=== PATIENT | male | born 2000 ===

== ENCOUNTER 2022-12-26 19:53 | Emergency (ER) | payer MEDICAID, SELFPAY ==
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
[2022-12-26 19:57] VITALS: BP 122/65; PULSE 52; RESP 16; TEMP 36.7; O2SAT 98; BMI 27.0
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
[2022-12-26] MEDS: Acetaminophen 325 MG TABLET 975 MG PO (21:57)
[2022-12-26] MEDS: Cyclobenzaprine HCl 10 MG TABLET PO (21:57)
--- NOTE | 2022-12-26 23:14 | PC.NURSE ---
pt wounds cleansed with NS followed by bacitracin followed y nonstick, abd placed on flank, folllowed by kerlix and tape. thumb spica applied to left hand fx well tolerated by pt
== END 2022-12-26 23:15 | disposition home or self-care (01) ==
PROVIDERS: Emergency Provider Emergency Medicine; PCP Pediatrics
DX: S62.001A Unspecified fracture of navicular [scaphoid] bone of right wrist, initial encounter for closed fracture (principal); S60.511A Abrasion of right hand, initial encounter; R51.9 Headache, unspecified; M54.2 Cervicalgia; M25.562 Pain in left knee; M25.561 Pain in right knee; M25.532 Pain in left wrist; M25.531 Pain in right wrist; V19.9XXA Pedal cyclist (driver) (passenger) injured in unspecified traffic accident, initial encounter; Y93.9 Activity, unspecified; Y92.410 Unspecified street and highway as the place of occurrence of the external cause; Y99.9 Unspecified external cause status; Z79.899 Other long term (current) drug therapy
CPT/HCPCS: 70450; 72125; 73110; 73130; 73564; 99283

== ENCOUNTER 2023-01-04 09:57 | Outpatient (REF) | payer MEDICAID, SELFPAY ==
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
== END 2023-01-04 09:58 | disposition home or self-care (01) ==
LOC: HO.HOSX 09:57
PROVIDERS: PCP Pediatrics; Visit Provider Orthopaedic Surgery
DX: S62.021A Displaced fracture of middle third of navicular [scaphoid] bone of right wrist, initial encounter for closed fracture (principal)
CPT/HCPCS: 73110; 99202

== ENCOUNTER 2023-01-06 06:55 | Day surgery (SDC) | payer MEDICAID, SELFPAY ==
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
[2023-01-06] VITALS (8 sets, daily range): BP systolic 114–147; BP diastolic 70–84; PULSE 44–67; RESP 12–18; TEMP 36.1–36.4; O2SAT 96–100; BMI 28.1
--- NOTE | ~2023-01-06 | FL_ITS ---
EXAMINATION: XR FLUOROSCOPY WITH IMAGES CLINICAL INFORMATION: Right scaphoid fracture COMPARISON: None available. TECHNIQUE: Fluoroscopy Supervised By: Dr. Eben Valera. Fluoroscopy Time: 174.08 seconds Cumulative Dose: . 5.82 mGy. DAP: 0.3521 Gycm2. Images: 9 FINDINGS: There are 9 digital images revealing stabilization of mid scaphoid fracture with a solitary cancellous screw the fracture fragment is in alignment. No additional bony abnormality seen. FL/FL guidance in OR IMPRESSION: Interval stabilization of scaphoid fracture with a solitary cancellous screws. Fluoroscopy guidance was provided to referring physician.
[2023-01-06] MEDS: Lactated Ringers 1,000 ML 100 ML IVCONT (08:22)
--- NOTE | 2023-01-06 08:31 | P.CONAN_ITS ---
[facility] Active Problems Active Problems: All Active Problems (Updated 01/04/23 @ 10:38 by Anderson Boles) Closed comminuted fracture of waist of scaphoid of right wrist (Acute) Past Medical History Functional capacity: independent ambulation Social History Social History Patient Tobacco Use Status: Never used Tobacco Current occupational status: unemployed Current occupation: right hand Meds Allergies Allergy/AdvReac Type Severity Reaction Status Date / Time No Known Allergies Allergy Unverified 01/04/23 10:27 Active Medications: Current Medications Lactated Ringer's (Lr) 1,000 mls @ 100 mls/hr IVCONT .Q10H DANNY Last Admin: 01/06/23 08:22 Dose: 100 mls/hr Exam Exam Date and Time: January 06, 2023 0831 Height,Weight and Vital Signs: Height 5 ft 8 in Weight 83.915 kg Last Vital Signs Temp 96.9 F 01/06/23 08:13 Pulse 44 L 01/06/23 08:13 Resp 18 01/06/23 08:13 BP 123/70 01/06/23 08:13 Pulse Ox 99 01/06/23 08:13 O2 Del Method Room Air 01/06/23 08:13 Airway Mallampati Class: II TM Dist: >3cm Neck ROM: Full Heart: RRR Lungs: CTA Assessment and Plan Assessment Anesthesia Assessment: Anesthesia Plan Discussed, Smoking Cess. Discussed and Chart Reviewed Final Anesthetic Review ASA Class: II Final Preanesthetic Review: Meds/Allgs Chart Reviewed, Consent Obtained/Reviewed and Anes Risks/Benef Reviewed Patient Risk: Low Procedure Risk: Low Anesthetic Plan Anesthetic Plan: GA Disposition: Standard PACU
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
--- NOTE | 2023-01-06 11:30 | HO.ANESPROP2 ---
[facility] Active Problems Active Problems: All Active Problems (Updated 01/04/23 @ 10:38 by Anderson Boles) Closed comminuted fracture of waist of scaphoid of right wrist (Acute) asthma Past Medical History Functional capacity: independent ambulation Social History Social History Patient Tobacco Use Status: Never used Tobacco Use of substances other than those prescribed or required for medical reasons: Yes Substance Use Frequency: Daily Are you DNR?: No Advance Directives: No Advance Directives Information Provided: Yes Current occupational status: unemployed Current occupation: right hand Meds Allergies Allergy/AdvReac Type Severity Reaction Status Date / Time No Known Allergies Allergy Unverified 01/04/23 10:27 Active Medications: Current Medications Fentanyl (Fentanyl Citrate/Pf 100 Mcg/2 Ml Vial) 25 mcg IVPUSH Q5M PRN; Protocol PRN Reason: Pain, Moderate(Pain Scale 4-6) Lactated Ringer's (Lr) 1,000 mls @ 100 mls/hr IVCONT .Q10H DANNY Last Admin: 01/06/23 08:22 Dose: 100 mls/hr Ondansetron HCl (Ondansetron Hcl 4 Mg/2 Ml Vial) 4 mg IVPUSH ONCE PRN PRN Reason: Nausea and Vomiting Exam Exam Date and Time: January 06, 2023 1130 Height,Weight and Vital Signs: Height 5 ft 8 in Weight 83.915 kg Last Vital Signs Temp 96.9 F 01/06/23 08:13 Pulse 44 L 01/06/23 08:13 Resp 18 01/06/23 08:13 BP 123/70 01/06/23 08:13 Pulse Ox 99 01/06/23 08:13 O2 Del Method Room Air 01/06/23 08:13 Airway Mallampati Class: II TM Dist: >3cm Neck ROM: Full Heart: RRR Lungs: CTA Assessment and Plan Final Anesthetic Review ASA Class: II Final Preanesthetic Review: Meds/Allgs Chart Reviewed, Consent Obtained/Reviewed and Anes Risks/Benef Reviewed Patient Risk: Low Procedure Risk: Low Anesthetic Plan Anesthetic Plan: GA Disposition: Standard PACU
[2023-01-06] MEDS: Acetaminophen 1,000 MG/100 ML PIGGYBACK 400 MG IV (12:35)
== END 2023-01-06 13:25 | disposition home or self-care (01) ==
PROVIDERS: PCP Pediatrics; Visit Provider Orthopaedic Surgery
PROC: (CPT 25628; principal; 2023-01-06 09:00)
DX: S62.021A Displaced fracture of middle third of navicular [scaphoid] bone of right wrist, initial encounter for closed fracture (principal); V29.99XA Rider (driver) (passenger) of other motorcycle injured in unspecified traffic accident, initial encounter; Y93.55 Activity, bike riding; Y92.9 Unspecified place or not applicable; Y99.8 Other external cause status; J45.909 Unspecified asthma, uncomplicated; F17.210 Nicotine dependence, cigarettes, uncomplicated
CPT/HCPCS: 25628; C1713; J0131; J0690; J2250; J2795; J3010

== ENCOUNTER 2023-01-19 12:25 | Outpatient (REF) | payer MEDICAID, SELFPAY ==
--- NOTE | ~2023-01-19 | XR_ITS ---
EXAMINATION: XR WRIST, RIGHT CLINICAL INFORMATION: Right hand pain. COMPARISON: 01/04/2023 TECHNIQUE: 4 views right wrist. FINDINGS: Since the prior study which demonstrated a fracture through the waist of the scaphoid, a screw has been placed. The screw extends from the superior aspect of the scaphoid to about the level of the distal two-thirds of the scaphoid. Fracture fragment distraction is slightly improved when compared to the prior study. No definite healing is seen as of yet. No additional fractures are seen. XR/XR wrist RT w scaphoid IMPRESSION: Screw fixation of scaphoid fracture, as described above. No definite healing is seen as of yet.
== END 2023-01-19 12:26 | disposition home or self-care (01) ==
LOC: HO.HOSX 12:25
PROVIDERS: Visit Provider Physician Assistant
DX: S62.021D Displaced fracture of middle third of navicular [scaphoid] bone of right wrist, subsequent encounter for fracture with routine healing (principal); X58.XXXD Exposure to other specified factors, subsequent encounter
CPT/HCPCS: 29085; 73110; 99212

== ENCOUNTER 2023-02-23 11:24 | Outpatient (REF) | payer MEDICAID, SELFPAY ==
--- NOTE | ~2023-02-23 | XR_ITS ---
EXAMINATION: XR WRIST, RIGHT CLINICAL INFORMATION: Right hand pain. COMPARISON: 01/04/2023, 02/23/2023. TECHNIQUE: 4 views right wrist. FINDINGS: Redemonstration of a screw transfixing previously identified fracture through the waist of the scaphoid. Alignment is similar. Hardware appears intact. There has been no significant change in appearance since exam of 02/23/2023. No definite healing is demonstrated at this time. XR/XR wrist RT w scaphoid IMPRESSION: Screw fixation of scaphoid fracture, as described above. No definite healing is seen as of yet.
== END 2023-02-23 11:25 | disposition home or self-care (01) ==
LOC: HO.HOSX 11:24
PROVIDERS: Visit Provider Orthopaedic Surgery
DX: S62.021D Displaced fracture of middle third of navicular [scaphoid] bone of right wrist, subsequent encounter for fracture with routine healing (principal)
CPT/HCPCS: 73110

== ENCOUNTER 2023-02-23 14:04 | Outpatient (AMB) | payer MEDICAID, SELFPAY ==
[2023-02-23 14:22] VITALS: BMI 26.5
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
== END 2023-02-23 15:36 | disposition home or self-care (01) ==
PROVIDERS: PCP Pediatrics; Visit Provider Orthopaedic Surgery
DX: S62.021A Displaced fracture of middle third of navicular [scaphoid] bone of right wrist, initial encounter for closed fracture (principal)
CPT/HCPCS: 99024

== ENCOUNTER 2023-03-21 13:35 | Outpatient (AMB) | payer MEDICAID, SELFPAY ==
--- NOTE | 2023-03-21 13:53 | A.OFFVIS_ITS ---
Intake Vital Signs 03/21/23 13:57 Height 5 ft 8 in Weight 174 lb BMI 26.5 Handedness Right Intake Visit Reasons: Postop-R Scaphoid ORIF-x/ray cast off01/06/23 AR Intake Note: Stuart is a 22 year old male who presents today for a post operative right scaphoid ORIF on 01/06/23 AR. Patient reports no pain at the moment. Denies numbness and tingling. Allergies No Known Allergies Allergy (Verified 03/21/23 13:56) HPI Postop-R Scaphoid ORIF-x/ray cast off01/06/23 AR HPI Details 22-year-old male who presents in the office today 2 months status post right scaphoid fracture open reduction internal fixation, which was perform on 01/06/[address] Treadwell. The patient reports no pain while in the office today. He denies numbness or tingling. He states it feels weird. [facility] Social History Patient Tobacco Use Status: Never used Tobacco Current occupational status: unemployed Current occupation: right hand Review of Systems Const All systems reviewed & are unremarkable except as noted in HPI and below Physical Exam Vital Signs: BMI result Body Mass Index 26.5 Const General: cooperative, healthy appearing and no acute distress Orientation/consciousness: patient oriented x3 Resp Effort & Inspection: normal respiratory effort and able to speak in complete sentences Cardio Rate: regular rate Peripheral pulses: Peripheral pulses 2+ throughout GI Palpation (GI): Soft to palpation Skin Lesions: no lesions Rashes: no rashes Neuro General: patient oriented x3 Extrem Other: The patient was alert oriented and in no acute distress The incision is well-healed with no erythema drainage or evidence of infection. He can make a fist and extend all is digits No swelling or erythema No snuffbox tenderness Mild tenderness over the scaphoid tubercle where his surgical site is Mild tenderness over the proximal pole Sensation is intact Cap refill is brisk Radiographs: 3 views of the right wrist were taken and viewed by me today in clinic. They show a right scaphoid fracture with satisfactory fracture alignment and position of the headless compression screw Psych Appearance: grossly normal Affect: normal affect Attitude: cooperative Assessment & Plan Assessment & Plan (1) Closed comminuted fracture of waist of scaphoid of right wrist: Code(s): S62.021A - Displaced fracture of middle third of navicular [scaphoid] bone of right wrist, initial encounter for closed fracture Plan Mr. Schneider is a 22-year-old male who presents in the office today 2 months status post right scaphoid fracture open reduction internal fixation, which was perform on 01/06/[address] Treadwell. The patient reports no pain while in the office today. He denies numbness or tingling. He states it feels weird. I discussed the role of occupational therapy, but due to his good ROM we have agreed to defer at this time. I demonstrate some gentle ROM and touch therapy for the patient to work on. He demonstrates understanding. The patient will be placed in a velcro wrist splint, of the shelf, while in the office today. He only needs to wear the splint when performing activities for the next 4 weeks. Follow up will be in 4 weeks with repeat x-rays, or sooner if needed. X-rays of the right hand which were obtained while in the office today and were reviewed by me, Iris Riley PA-C, revealed orthopedic hardware intact with routine healing. Orders: Orders XR wrist RT w scaphoid Today M79.641 - Pain in right hand Patient Instructions: Scribed for Iris Riley PA-C by Suad Jesus nurses medical assistants phlebotomists, on 03/21/2023 at 2:00 pm, EST. Coding Level of Care Code Global (71316) Diagnoses Closed comminuted fracture of waist of scaphoid of right wrist S62.021A
[2023-03-21 13:57] VITALS: BMI 26.5
== END 2023-03-21 14:14 | disposition home or self-care (01) ==
PROVIDERS: PCP Pediatrics; Visit Provider Physician Assistant
DX: S62.021D Displaced fracture of middle third of navicular [scaphoid] bone of right wrist, subsequent encounter for fracture with routine healing (principal)
CPT/HCPCS: 99024

== ENCOUNTER 2023-03-21 13:35 | Outpatient (REF) | payer MEDICAID, SELFPAY ==
--- NOTE | ~2023-03-21 | XR_ITS ---
EXAMINATION: XR WRIST, RIGHT CLINICAL INFORMATION: Pain. COMPARISON: Prior radiographs, most recently 02/23/2023. TECHNIQUE: PA, lateral, and oblique views of the right wrist. FINDINGS: An orthopedic screw again transfixes a previously identified fracture of the scaphoid waist. Alignment is stable, and a faint fracture line is redemonstrated, best appreciated on the navicular view. There is no significant callus formation. The proximal and distal carpal rows are intact. There are soft tissue calcifications which are new from prior radiographs and may be superficial to the patient. XR/XR wrist RT w scaphoid IMPRESSION: 1. There is well-maintained alignment of a right navicular fracture status-post ORIF. No hardware failure or loosening is seen. A persistent, faint fracture line is noted 2. There are soft tissue calcifications which are new from prior radiographs and may be superficial to the patient. Please correlate clinically.
== END 2023-03-21 13:36 | disposition home or self-care (01) ==
LOC: HO.HOSX 13:35
PROVIDERS: PCP Pediatrics; Visit Provider Physician Assistant
DX: S62.021D Displaced fracture of middle third of navicular [scaphoid] bone of right wrist, subsequent encounter for fracture with routine healing (principal)
CPT/HCPCS: 73110

== ENCOUNTER 2023-04-21 17:22 | Outpatient (REF) | payer MEDICAID, SELFPAY | END 2023-04-21 17:23 | disposition home or self-care (01) | LOC: HO.HOSX 17:22 | PROVIDERS: Visit Provider Physician Assistant | DX: Z13.89 Encounter for screening for other disorder (principal) ==